=== PATIENT | female | born 1995 | race Caucasian/White ===

== ENCOUNTER 2022-03-25 12:25 | Emergency (ER) | payer OTHER ==
[~2022-03-25] VITALS: Ht 165.1 cm; Wt 56.8 kg
[2022-03-25 14:43] LABS: APPEARANCE,URINE HAZY (CLEAR); BILIRUBIN,URINE NEGATIVE (NEGATIVE); GLUCOSE, URINE (UA) NEGATIVE (NEGATIVE); KETONES,URINE 80-100 mg/dL (NEGATIVE); LEUKOCYTE ESTERASE ,URINE LARGE (NEGATIVE); NITRATE,URINE POSITIVE (NEGATIVE); OCCULT BLOOD,URINE LARGE (NEGATIVE); PROTEIN,URINE 30-70 mg/dL (NEGATIVE); SPECIFIC GRAVITIY, URINE 1.018 (1.003-1.030); UROBILINOGEN,URINE <=1.0 mg/dL (<=1.0)
[2022-03-25 14:50] LABS: BACTERIA,URINE Many /HPF (None Seen); RBC,URINE 51-100 /HPF (0-2); WBC,URINE 26-50 /HPF (0-5); YEAST,URINE Few /HPF (None Seen)
[2022-03-25 14:51] LABS: SQUAMOUS EPITHELIAL CELL,UR Many /LPF (None Seen)
[2022-03-25] MEDS ORDERED: CEFD300C18 PO (15:12)
[2022-03-25] MEDS ORDERED: ONDA-104 PO (15:12)
[2022-03-25 15:24] VITALS: BP 127/75
== END 2022-03-25 15:17 | disposition home or self-care (01) ==
LOC: EMS 12:29
DX: N12 Tubulo-interstitial nephritis, not specified as acute or chronic (principal)
CPT/HCPCS: 81001; 84703; 87086; 99283